=== PATIENT | male | born 1950 | race African-American/Black ===

== ENCOUNTER 2017-11-14 08:20 | Inpatient (IN) | payer MEDICARE, OTHER ==
[2017-11-14] MEDS ORDERED: DUONEB *Not for PRN Use IH ONE ×3 (08:36→11:57)
[2017-11-14] MEDS ORDERED: MAGNESIUM SULFATE 2GM/50ML 2 GM/50 ML BAG IV ONE (09:05)
[2017-11-14] MEDS ORDERED: PROVENTIL IH ONE (09:05)
[2017-11-14] MEDS ORDERED: NORCO 5/325 PO ONE (09:06)
[2017-11-14 09:12] LABS: Basophils # (Auto) 0.1 K/mm3 (0.0-0.1); Basophils % (Auto) 0.6 % (0.0-1.8); Eosinophils # (Auto) 0.2 K/mm3 (0.0-0.4); Eosinophils % (Auto) 2.7 % (0.0-4.3); Hematocrit 45.8 % (35.5-45.6); Hemoglobin 15.5 gm/dl (11.8-15.2); Lymphocytes # (Auto) 1.6 K/mm3 (1.2-5.4); Lymphocytes % (Auto) 18.3 % (13.4-35.0); Mean Corpuscular HGB Conc 34 % (32-34); Mean Corpuscular Hemoglobin 30 pg (28-32); Mean Corpuscular Volume 89 fl (84-94); Monocytes # (Auto) 0.5 K/mm3 (0.0-0.8); Monocytes % (Auto) 5.6 % (0.0-7.3); Platelet Count 210 K/mm3 (140-440); Red Blood Count 5.13 M/mm3 (3.65-5.03); Red Cell Distribution Width 13.7 % (13.2-15.2)
[2017-11-14 09:18] LABS: BUN/Creatinine Ratio 21; Blood Urea Nitrogen 15 mg/dL (9-20); Calcium 8.5 mg/dL (8.4-10.2); Hemolysis Index 5
--- NOTE | 2017-11-14 09:36 | XRay Report ---
AP CHEST: HISTORY: Hypertension AP view of the chest demonstrates a normal mediastinal and cardiac contour with clear lungs and normal bony and soft tissue structures. IMPRESSION: Unremarkable AP chest.
[2017-11-14 10:29] LABS: INR 0.81 (0.87-1.13)
[2017-11-14 10:30] LABS: Creatine Kinase MB 3.6 ng/mL (0.0-4.0); Partial Thromboplastin Time 31.2 Sec. (24.2-36.6)
[2017-11-14 10:31] LABS: Alanine Aminotransferase 21 units/L (7-56); Albumin 4.2 g/dL (3.9-5)
[2017-11-14 10:33] LABS: Bilirubin,Direct < 0.2 mg/dL (0-0.2)
[2017-11-14] MEDS ORDERED: NACL 0.9% 500 ML 500 ML ONE (10:39)
--- NOTE | 2017-11-14 11:52 | Emergency Department Report ---
ED General Adult HPI - General Chief complaint: Dyspnea/Respdistress Stated complaint: KENYA Time Seen by Provider: 11/14/17 08:33 Source: EMS Mode of arrival: Stretcher Limitations: Language Barrier - History of Present Illness Initial comments: The patient is a 67 year old diabetic male with a history of paroxysmal atrial fibrillation on accident. He presents to the emergency department for an exacerbation of COPD. He's been wheezing for the past few days. He states he is on 20 mg of prednisone a day. He does not complain of much cough. He has had some mild intermittent substernal nonradiating now pleuritic chest pain. He tells me he thinks he had a cardiac catheterization within the past 2 years. However this does not appear to be the case. I did find a record from [facility] indicating: Coronary angiography in 04/2012 revealed mild, non- obstructive LAD disease (10-20%). However, I do not find evidence of a subsequent cardiac catheterization. -: Gradual, days(s) Location: chest Radiation: non-radiation Severity scale (0 -10): 8 Consistency: intermittent, now resolved Improves with: none Worsens with: none Associated Symptoms: denies other symptoms, chest pain Treatments Prior to Arrival: none - Related Data Home Medications Medication Instructions Recorded Confirmed Last Taken Digoxin 0.125 mg PO DAILY 07/31/13 02/06/16 02/05/16 Fenofibrate Nanocrystallized 145 mg PO DAILY 07/31/13 02/06/16 02/05/16 [Tricor] Benzonatate [Tessalon Perles] 100 mg PO Q8HR 02/06/16 02/06/16 02/06/16 Budesonide [Pulmicort] 0.5 mg IH Q12HR 02/06/16 02/06/16 02/06/16 Canagliflozin (Nf) [Invokana (Nf)] 100 mg PO DAILY 02/06/16 02/06/16 02/05/16 Losartan [Cozaar] 50 mg PO DAILY 02/06/16 02/06/16 02/05/16 Lovastatin [Altoprev] 40 mg PO DAILY 02/06/16 02/06/16 02/05/16 Montelukast [Singulair] 10 mg PO DAILY 02/06/16 02/06/16 02/05/16 Verapamil HCl [Verapamil ER PM] 100 mg PO DAILY 02/06/16 02/06/16 02/05/16 metFORMIN [Glucophage] 1,000 mg PO BID 02/06/16 02/06/16 02/05/16 predniSONE [Deltasone] 20 mg PO QDAY 02/06/16 02/06/16 02/05/16 Previous Rx's Medication Instructions Recorded Last Taken Type Dabigatran [Pradaxa] 150 mg PO BID #60 capsule 02/08/14 02/05/16 Rx Levofloxacin [Levaquin TAB] 500 mg PO QDAY #5 tablet 02/08/14 02/05/16 Rx Azithromycin [Zithromax Z-MELO] 250 mg PO DAILY #1 pack 02/06/16 Unknown Rx Allergies Allergy/AdvReac Type Severity Reaction Status Date / Time No Known Allergies Allergy Unverified 08/01/13 11:30 ED Review of Systems ROS: Stated complaint: KENYA Other details as noted in HPI Constitutional: denies: chills, fever Eyes: denies: eye pain, eye discharge, vision change ENT: denies: ear pain, throat pain Respiratory: shortness of breath, wheezing. denies: cough Cardiovascular: chest pain. denies: palpitations Endocrine: no symptoms reported Gastrointestinal: denies: abdominal pain, nausea, diarrhea Genitourinary: denies: urgency, dysuria Musculoskeletal: denies: back pain, joint swelling, arthralgia Skin: denies: rash, lesions Neurological: denies: headache, weakness, paresthesias Psychiatric: denies: anxiety, depression Hematological/Lymphatic: denies: easy bleeding, easy bruising ED Past Medical Hx - Past Medical History Hx Hypertension: Yes Hx Heart Attack/AMI: Yes Hx Congestive Heart Failure: No Hx Diabetes: Yes Hx Asthma: Yes Hx COPD: Yes Additional medical history: afib - Surgical History Additional Surgical History: none - Social History Smoking Status: Never Smoker - Medications Home Medications: Home Medications Medication Instructions Recorded Confirmed Last Taken Type Digoxin 0.125 mg PO DAILY 07/31/13 02/06/16 02/05/16 History Fenofibrate Nanocrystallized 145 mg PO DAILY 07/31/13 02/06/16 02/05/16 History [Tricor] Dabigatran [Pradaxa] 150 mg PO BID #60 capsule 02/08/14 02/06/16 02/05/16 Rx Levofloxacin [Levaquin TAB] 500 mg PO QDAY #5 tablet 02/08/14 02/06/16 02/05/16 Rx Azithromycin [Zithromax Z-MELO] 250 mg PO DAILY #1 pack 02/06/16 Unknown Rx Benzonatate [Tessalon Perles] 100 mg PO Q8HR 02/06/16 02/06/16 02/06/16 History Budesonide [Pulmicort] 0.5 mg IH Q12HR 02/06/16 02/06/16 02/06/16 History Canagliflozin (Nf) [Invokana (Nf)] 100 mg PO DAILY 02/06/16 02/06/16 02/05/16 History Losartan [Cozaar] 50 mg PO DAILY 02/06/16 02/06/16 02/05/16 History Lovastatin [Altoprev] 40 mg PO DAILY 02/06/16 02/06/16 02/05/16 History Montelukast [Singulair] 10 mg PO DAILY 02/06/16 02/06/16 02/05/16 History Verapamil HCl [Verapamil ER PM] 100 mg PO DAILY 02/06/16 02/06/16 02/05/16 History metFORMIN [Glucophage] 1,000 mg PO BID 02/06/16 02/06/16 02/05/16 History predniSONE [Deltasone] 20 mg PO QDAY 02/06/16 02/06/16 02/05/16 History ED Physical Exam - General Limitations: Language Barrier General appearance: alert, in no apparent distress - Head Head exam: Present: atraumatic, normocephalic - Eye Eye exam: Present: normal appearance, PERRL, EOMI. Absent: scleral icterus - ENT ENT exam: Present: mucous membranes moist - Neck Neck exam: Present: normal inspection - Respiratory Respiratory exam: Present: wheezes, accessory muscle use. Absent: respiratory distress - Cardiovascular Cardiovascular Exam: Present: regular rate, normal rhythm. Absent: systolic murmur, diastolic murmur, rubs, gallop - GI/Abdominal GI/Abdominal exam: Present: soft, normal bowel sounds. Absent: distended, tenderness, guarding, rebound, rigid - Rectal Rectal exam: Present: deferred - Extremities Exam Extremities exam: Present: normal inspection, tenderness, normal capillary refill. Absent: pedal edema, joint swelling, calf tenderness - Back Exam Back exam: Present: normal inspection - Neurological Exam Neurological exam: Present: alert, oriented X3, CN II-XII intact. Absent: motor sensory deficit - Psychiatric Psychiatric exam: Present: normal affect, normal mood - Skin Skin exam: Present: warm, dry, intact, normal color. Absent: rash ED Course Vital Signs 11/14/17 11/14/17 11/14/17 08:35 08:47 08:50 Temperature 98.6 F Pulse Rate 96 H 96 H Pulse Rate [ Bilateral] Respiratory 24 Rate Respiratory Rate [Bilateral ] Blood Pressure 140/92 O2 Sat by Pulse 98 96 Oximetry 11/14/17 11/14/17 09:15 09:27 Temperature Pulse Rate Pulse Rate [ 97 H 101 H Bilateral] Respiratory Rate Respiratory 18 18 Rate [Bilateral ] Blood Pressure O2 Sat by Pulse Oximetry - Reevaluation(s) Reevaluation #1: The patient's wheezing did improve at least 80%. His pulse oximetry was 95% on room air. He was concerned about his intermittent chest pain. I do not think he's had a repeat cardiac catheterization since 2011 as far as I can tell. He had nonobstructive LAD disease at that point. I spoke with Dr. Rodgers, he will be admitting the patient to telemetry. I will place a consultation to [facility]. He is admitted in stable condition. 11/14/17 11:49 ED Medical Decision Making - Lab Data Result diagrams: 11/14/17 08:54 11/14/17 08:54 Laboratory Results - last 24 hr 11/14/17 11/14/17 11/14/17 08:54 08:54 09:53 WBC 8.9 RBC 5.13 H Hgb 15.5 H Hct 45.8 H MCV 89 MCH 30 MCHC 34 RDW 13.7 Plt Count 210 Lymph % (Auto) 18.3 [place] % (Auto) 5.6 Eos % (Auto) 2.7 Baso % (Auto) 0.6 Lymph # 1.6 [place] # 0.5 Eos # 0.2 Baso # 0.1 Seg Neutrophils % 72.8 H Seg Neutrophils # 6.5 PT INR APTT Sodium 138 Potassium 3.9 Chloride 98.1 Carbon Dioxide 24 Anion Gap 20 BUN 15 Creatinine 0.7 L Estimated GFR > 60 BUN/Creatinine Ratio 21 Glucose 267 H Calcium 8.5 Magnesium 2.50 H Total Bilirubin 0.30 Direct Bilirubin < 0.2 AST 17 ALT 21 Alkaline Phosphatase 52 Total Creatine Kinase CK-MB (CK-2) CK-MB (CK-2) Rel Index Troponin T < 0.010 NT-Pro-B Natriuret Pep 259.4 Total Protein 6.0 L Albumin 4.2 Albumin/Globulin Ratio 2.3 11/14/17 11/14/17 09:53 09:53 WBC RBC Hgb Hct MCV MCH MCHC RDW Plt Count Lymph % (Auto) Florence % (Auto) Eos % (Auto) Baso % (Auto) Lymph # [place] # Eos # Baso # Seg Neutrophils % Seg Neutrophils # PT 11.6 L INR 0.81 L APTT 31.2 Sodium Potassium Chloride Carbon Dioxide Anion Gap BUN Creatinine Estimated GFR BUN/Creatinine Ratio Glucose Calcium Magnesium Total Bilirubin Direct Bilirubin AST ALT Alkaline Phosphatase Total Creatine Kinase 96 CK-MB (CK-2) 3.6 CK-MB (CK-2) Rel Index 3.7 Troponin T NT-Pro-B Natriuret Pep Total Protein Albumin Albumin/Globulin Ratio - EKG Data -: EKG Interpreted by Me EKG shows normal: axis (normal axis) Rate: normal (atrial fibrillation with controlled ventricular response) - EKG Data Interpretation: nonspecific ST-T wave mohinder - Radiology Data interpreted by me: Chest x-ray no acute process Critical care attestation.: If time is entered above; I have spent that time in minutes in the direct care of this critically ill patient, excluding procedure time. ED Disposition Clinical Impression: Acute exacerbation of COPD with asthma, Chronic atrial fibrillation Chest pain Qualifiers: Chest pain type: unspecified Qualified Code(s): R07.9 - Chest pain, unspecified Hyperglycemia due to type 2 diabetes mellitus Qualifiers: Diabetes mellitus intermediate card tender insulin use: without fci use Qualified Code(s ): E11.65 - Type 2 diabetes mellitus with hyperglycemia Disposition: OP ADMIT IP TO THIS HOSP Is pt being admited?: Yes Does the pt Need Aspirin: Yes Condition: Stable Instructions: Asthma (ED), Chest Pain (ED), Diabetes Mellitus Type 2 in Adults (ED) Referrals: PRIMARY CARE, [Primary Care Provider] - 3-5 Days Time of Disposition: 11:54
[2017-11-14] MEDS: ASPIRIN PO SCH (12:30)
[2017-11-14] MEDS ORDERED: D50W (25GM) Syringe IV PRN (13:40)
[2017-11-14] MEDS ORDERED: VERAPAMIL HCL 100 MG PO SCH (13:45)
[2017-11-14] MEDS ORDERED: NON-FORMULARY (Lovastatin [Altoprev] 40 MG) PO SCH (13:45)
--- NOTE | 2017-11-14 13:46 | History and Physical Report ---
History of Present Illness Date of examination: 11/14/17 Date of admission: 11/14/17 Chief complaint: shortness of breath and difficulty in breathing History of present illness: The patient is a 67 year old male with DMT2, Asthma, Afib adn anticoagulation with Pradaxa, presented ti the Ed on account of progressively worsening shortness of breath that started at about 9 pm yesterday 11/13/17. Had multiple breathing treatment at home including one dose of predinisone that did not improve his symptoms. He presents to the emergency department pt was still wheezing with limited air movement. More aerosolized treatment were give, symptoms peristedEKG showed nonspecific ST segment changes. Pt also complained of dull retrosternal chest pain 4/10 in severity. Nonradiatory and had no diaphoresis. Nonreproducible. Had coronary angiography in 04/2012 that revealed mild, non-obstructive LAD disease (10-20%). Pt was therefore admitted for further evaluation and treatment. Past History Past Medical History: COPD, diabetes, hypertension Social history: denies: smoking, alcohol abuse, prescription drug abuse Medications and Allergies Allergies Allergy/AdvReac Type Severity Reaction Status Date / Time No Known Allergies Allergy Unverified 08/01/13 11:30 Home Medications Medication Instructions Recorded Confirmed Last Taken Type Digoxin 0.125 mg PO DAILY 07/31/13 11/14/17 1 Day Ago History ~11/13/17 Fenofibrate Nanocrystallized 145 mg PO DAILY 07/31/13 11/14/17 1 Day Ago History [Tricor] ~11/13/17 Dabigatran [Pradaxa] 150 mg PO BID #60 capsule 02/08/14 11/14/17 1 Day Ago Rx ~11/13/17 Levofloxacin [Levaquin TAB] 500 mg PO QDAY #5 tablet 02/08/14 11/14/17 1 Day Ago Rx ~11/13/17 Azithromycin [Zithromax Z-MELO] 250 mg PO DAILY #1 pack 02/06/16 11/14/17 1 Day Ago Rx ~11/13/17 Benzonatate [Tessalon Perles] 100 mg PO Q8HR 02/06/16 11/14/17 1 Day Ago History ~11/13/17 Budesonide [Pulmicort] 0.5 mg IH Q12HR 02/06/16 11/14/17 1 Day Ago History ~11/13/17 Canagliflozin (Nf) [Invokana (Nf)] 100 mg PO DAILY 02/06/16 11/14/17 1 Day Ago History ~11/13/17 Losartan [Cozaar] 50 mg PO DAILY 02/06/16 11/14/17 1 Day Ago History ~11/13/17 Lovastatin [Altoprev] 40 mg PO DAILY 02/06/16 11/14/17 1 Day Ago History ~11/13/17 Montelukast [Singulair] 10 mg PO DAILY 02/06/16 11/14/17 1 Day Ago History ~11/13/17 Verapamil HCl [Verapamil ER PM] 100 mg PO DAILY 02/06/16 11/14/17 1 Day Ago History ~11/13/17 metFORMIN [Glucophage] 1,000 mg PO BID 02/06/16 11/14/17 1 Day Ago History ~11/13/17 predniSONE [Deltasone] 20 mg PO QDAY 02/06/16 11/14/17 1 Day Ago History ~11/13/17 Active Meds: Active Medications Albuterol/Ipratropium (Duoneb *Not For Prn Use*) 2.5 ampul IH QIDRT [facility] Aspirin (Aspirin) 325 mg PO QDAY [facility] Last Admin: 11/14/17 12:30 Dose: 325 mg Benzonatate (Tessalon Perles) 100 mg PO Q8HR [facility] Budesonide (Pulmicort) 0.5 mg IH Q12HR [facility] Dabigatran (Pradaxa) 150 mg PO BID [facility]; Protocol Dextrose (D50w (25gm) Syringe) 50 ml IV PRN PRN PRN Reason: Hypoglycemia Digoxin (Lanoxin) 0.125 mg PO DAILY [facility] Fenofibrate (Tricor) 145 mg PO DAILY [facility] Azithromycin 500 mg/ Sodium (Chloride) 250 mls @ 250 mls/hr IV Q24HR [facility] Insulin Human Lispro (Humalog) 0 unit SUB-Q ACHS [facility]; Protocol Losartan Potassium (Cozaar) 50 mg PO DAILY [facility] Metformin HCl (Glucophage) 1,000 mg PO BID [facility] Methylprednisolone Sodium Succinate (Solu-Medrol) 40 mg IV QDAY [facility] Methylprednisolone Sodium Succinate (Solu-Medrol) 40 mg IV Q6HR ONE Stop: 11/14/17 13:36 Miscellaneous Medication (Lovastatin [Altoprev]) 40 mg PO DAILY [facility] Miscellaneous Medication (Verapamil Hcl [Verapamil Er Pm]) 100 mg PO DAILY [facility] Montelukast Sodium (Singulair) 10 mg PO QHS [facility] Montelukast Sodium (Singulair) 10 mg PO DAILY [facility] Review of Systems Constitutional: no weight loss, no weight gain Ears, nose, mouth and throat: no ear pain, no ear discharge, no tinnitis, no decreased hearing Cardiovascular: chest pain, orthopnea, no rapid/irregular heart beat, no edema, no syncope Respiratory: shortness of breath, dyspnea on exertion, wheezing Gastrointestinal: no abdominal pain, no nausea, no vomiting, no diarrhea, no constipation Rectal: incontinence, bleeding, no pain Musculoskeletal: neck stiffness, neck pain Integumentary: no rash, no pruritis, no redness, no sores, no wounds Neurological: no head injury, no transient paralysis, no paralysis, no weakness Psychiatric: no memory loss, no change in sleep habits, no sleep disturbances Endocrine: no cold intolerance, no heat intolerance, no polyphagia, no excessive thirst Hematologic/Lymphatic: no easy bruising, no easy bleeding Allergic/Immunologic: wheezing, no urticaria, no allergic rhinitis Exam - Constitutional Vitals: Temp Pulse Resp BP Pulse Ox 98.6 F 103 H 16 125/58 96 11/14/17 08:35 11/14/17 12:51 11/14/17 12:44 11/14/17 12:44 11/14/17 12:44 General appearance: Present: no acute distress, well-nourished - EENT Eyes: Present: PERRL, EOM intact - Neck Neck: Present: supple - Respiratory Respiratory effort: normal Respiratory: bilateral: diminished, wheezing - Cardiovascular Rhythm: irregularly irregular Heart Sounds: Present: systolic murmur. Absent: rub, click - Extremities Extremities: pulses symmetrical, No edema Peripheral Pulses: within normal limits - Abdominal General gastrointestinal: Present: soft, non-tender, non-distended, distended, normal bowel sounds - Integumentary Integumentary: Present: clear, warm, dry - Musculoskeletal Musculoskeletal: gait normal, strength equal bilaterally - Psychiatric Psychiatric: appropriate mood/affect, intact judgment & insight - Neurologic Neurologic: CNII-XII intact, moves all extremities Results - Labs CBC & Chem 7: 11/15/17 04:42 04/02/18 04:42 Labs: Abnormal lab results 11/14/17 11/14/17 11/14/17 Range/Units 08:54 08:54 09:53 RBC 5.13 H (3.65-5.03) M/mm3 Hgb 15.5 H (11.8-15.2) gm/dl Hct 45.8 H (35.5-45.6) % Seg Neutrophils % 72.8 H (40.0-70.0) % PT (12.2-14.9) Sec. INR (0.87-1.13) Creatinine 0.7 L (0.8-1.5) mg/dL Glucose 267 H (75-100) mg/dL Magnesium 2.50 H (1.7-2.3) mg/dL Total Protein 6.0 L (6.3-8.2) g/dL 11/14/17 Range/Units 09:53 RBC (3.65-5.03) M/mm3 Hgb (11.8-15.2) gm/dl Hct (35.5-45.6) % Seg Neutrophils % (40.0-70.0) % PT 11.6 L (12.2-14.9) Sec. INR 0.81 L (0.87-1.13) Creatinine (0.8-1.5) mg/dL Glucose (75-100) mg/dL Magnesium (1.7-2.3) mg/dL Total Protein (6.3-8.2) g/dL Assessment and Plan COPD exercebation Hypoxia Chest pain - likely 2/2 cardioac strain AF DMT2 Admit Bronchodilator Osygen supplement IV Solu medrol ASA, BB Azithromycin Continue with Pradaxa ASA, NTG, cardiology consult SSI, consisetnt CHO diet DVT PPx with heparin
[2017-11-14] MEDS ORDERED: SINGULAIR PO SCH ×2 (14:00→22:00)
[2017-11-14] MEDS ORDERED: LANOXIN PO SCH (14:00)
[2017-11-14] MEDS: TESSALON PERLES PO SCH ×2 (14:06→22:28)
[2017-11-14] MEDS ORDERED: ZITHROMAX 500 MG in NACL 0.9% 250ML 250 ML IV SCH (15:00)
[2017-11-14] MEDS: PULMICORT IH SCH ×2 (15:18→21:00)
[2017-11-14] MEDS: DUONEB *Not for PRN Use IH SCH ×2 (15:18→21:00)
[2017-11-14 15:51] LABS: ABG Base Excess -5.4 mmol/L (-2.0-3.0); ABG HCO3 18.4 mmol/L (20.0-26.0); ABG Methemoglobin 0.6 % (0.0-1.5); ABG Oxygen Saturation 95.9 % (95.0-99.0); ABG PCO2 31.3 mm Hg; ABG PH 7.385 pH Units (7.350-7.450); ABG PO2 79.5 mm Hg (80.0-90.0)
[2017-11-14] MEDS: TRICOR PO SCH (18:15)
[2017-11-14] MEDS: COZAAR PO SCH (18:15)
[2017-11-14] MEDS: PRADAXA PO SCH ×2 (18:15→22:28)
[2017-11-14] MEDS: HumaLOG SUB-Q SCH ×2 (18:19→22:26)
[2017-11-14] MEDS: GLUCOPHAGE PO SCH (18:32)
[2017-11-14] MEDS: CALAN SR PO SCH (18:32)
[2017-11-14] MEDS: LANOXIN PO SCH (20:52)
[2017-11-14] MEDS: PRAVACHOL PO SCH (22:29)
[2017-11-15] MEDS ORDERED: PROVENTIL IH PRN (00:56)
[2017-11-15] MEDS: TESSALON PERLES PO SCH ×3 (06:00→21:45)
[2017-11-15 06:27] LABS: Basophils % (Auto) 0.1 % (0.0-1.8); Eosinophils % (Auto) 0.1 % (0.0-4.3); Hematocrit 43.1 % (35.5-45.6); Hemoglobin 14.6 gm/dl (11.8-15.2); Lymphocytes # (Auto) 0.9 K/mm3 (1.2-5.4); Lymphocytes % (Auto) 9.1 % (13.4-35.0); Mean Corpuscular HGB Conc 34 % (32-34); Mean Corpuscular Hemoglobin 30 pg (28-32); Mean Corpuscular Volume 90 fl (84-94); Monocytes # (Auto) 0.4 K/mm3 (0.0-0.8); Platelet Count 224 K/mm3 (140-440); Red Cell Distribution Width 13.6 % (13.2-15.2)
[2017-11-15 06:59] LABS: Alanine Aminotransferase 21 units/L (7-56); Albumin 3.9 g/dL (3.9-5); BUN/Creatinine Ratio 26; Blood Urea Nitrogen 18 mg/dL (9-20); Calcium 8.1 mg/dL (8.4-10.2); Hemolysis Index 75
[2017-11-15] MEDS: DUONEB *Not for PRN Use IH SCH ×3 (08:01→19:43)
[2017-11-15] MEDS: PULMICORT IH SCH ×4 (08:01→22:48)
[2017-11-15] MEDS: HumaLOG SUB-Q SCH ×4 (08:55→21:54)
[2017-11-15] MEDS: TRICOR PO SCH (09:00)
[2017-11-15] MEDS: GLUCOPHAGE PO SCH ×2 (09:00→17:09)
[2017-11-15] MEDS: COZAAR PO SCH (09:00)
[2017-11-15] MEDS ORDERED: NACL 0.9% 1000 ML 1,000 ML IV SCH (09:00)
[2017-11-15] MEDS: PRADAXA PO SCH ×2 (09:00→21:45)
[2017-11-15] MEDS ORDERED: NACL 0.9% 1000 ML 1,000 ML IV ONE (09:00)
[2017-11-15] MEDS: SINGULAIR PO SCH (09:01)
[2017-11-15] MEDS: ASPIRIN PO SCH (09:01)
--- NOTE | 2017-11-15 09:22 | Progress Note ---
Assessment and Plan COPD exercebation Hypoxia Chest pain - likely 2/2 cardiac strain chronic AF DMT2 Plan Bronchodilator Oxygen supplement IV Solu medrol ASA, Holding Beta duke b/c sever COPD exercebation with asthma Azithromycin Continue with Pradaxa ASA, NTG, cardiology consult SSI, consisetnt CHO diet DVT PPx with heparin Subjective Date of service: 11/15/17 Principal diagnosis: COPD exercebation Interval history: Still having shortness of breath with wheezing though better. No fever. Objective - Constitutional Vitals: Vital Signs - 12hr 11/14/17 11/15/17 11/15/17 22:02 01:07 01:08 Temperature 97.8 F Pulse Rate 103 H Pulse Rate [ 105 H Bilateral] Respiratory 20 Rate Respiratory 18 Rate [Bilateral ] Blood Pressure 137/77 [Right] O2 Sat by Pulse 98 95 Oximetry 11/15/17 11/15/17 11/15/17 01:16 04:05 07:42 Temperature 98.1 F Pulse Rate 90 Pulse Rate [ 85 Bilateral] Respiratory 20 16 Rate Respiratory 18 Rate [Bilateral ] Blood Pressure 132/83 [Right] O2 Sat by Pulse 97 Oximetry 11/15/17 11/15/17 11/15/17 08:00 08:05 08:22 Temperature Pulse Rate Pulse Rate [ 112 H 101 H Bilateral] Respiratory Rate Respiratory 18 18 Rate [Bilateral ] Blood Pressure [Right] O2 Sat by Pulse 97 Oximetry General appearance: Present: no acute distress, well-nourished - EENT Eyes: PERRL, EOM intact - Neck Neck: supple, normal ROM - Respiratory Respiratory effort: normal Respiratory: bilateral: CTA - Cardiovascular Rhythm: regular Heart Sounds: Present: S1 & S2. Absent: gallop, rub Extremities: pulses intact, No edema, normal color, Full ROM - Gastrointestinal General gastrointestinal: Present: soft, non-tender, non-distended, normal bowel sounds - Integumentary Integumentary: clear, warm, dry - Musculoskeletal Musculoskeletal: 1, strength equal bilaterally - Neurologic Neurologic: moves all extremities - Psychiatric Psychiatric: memory intact, appropriate mood/affect, intact judgment & insight - Labs CBC & Chem 7: 11/16/17 04:30 11/16/17 04:30 Labs: Abnormal lab results 11/14/17 11/14/17 11/14/17 Range/Units 08:54 09:53 09:53 Lymph % (Auto) (13.4-35.0) % Lymph # (1.2-5.4) K/mm3 Seg Neutrophils % (40.0-70.0) % Seg Neutrophils # (1.8-7.7) K/mm3 PT 11.6 L (12.2-14.9) Sec. INR 0.81 L (0.87-1.13) ABG pO2 (80.0-90.0) mm Hg ABG HCO3 (20.0-26.0) mmol/L ABG Base Excess (-2.0-3.0) mmol/L Oxyhemoglobin (95.0-99.0) % Sodium (137-145) mmol/L Chloride (98-107) mmol/L Carbon Dioxide (22-30) mmol/L Creatinine 0.7 L (0.8-1.5) mg/dL Glucose 267 H (75-100) mg/dL POC Glucose (70-105) Calcium (8.4-10.2) mg/dL Magnesium 2.50 H (1.7-2.3) mg/dL Total Protein 6.0 L (6.3-8.2) g/dL 11/14/17 11/14/17 11/14/17 Range/Units 15:35 18:22 19:44 Lymph % (Auto) (13.4-35.0) % Lymph # (1.2-5.4) K/mm3 Seg Neutrophils % (40.0-70.0) % Seg Neutrophils # (1.8-7.7) K/mm3 PT (12.2-14.9) Sec. INR (0.87-1.13) ABG pO2 79.5 L (80.0-90.0) mm Hg ABG HCO3 18.4 L (20.0-26.0) mmol/L ABG Base Excess -5.4 L (-2.0-3.0) mmol/L Oxyhemoglobin 94.2 L (95.0-99.0) % Sodium (137-145) mmol/L Chloride (98-107) mmol/L Carbon Dioxide (22-30) mmol/L Creatinine (0.8-1.5) mg/dL Glucose (75-100) mg/dL POC Glucose 308 H 352 H (70-105) Calcium (8.4-10.2) mg/dL Magnesium (1.7-2.3) mg/dL Total Protein (6.3-8.2) g/dL 11/14/17 11/15/17 11/15/17 Range/Units 22:03 04:20 04:42 Lymph % (Auto) 9.1 L (13.4-35.0) % Lymph # 0.9 L (1.2-5.4) K/mm3 Seg Neutrophils % 86.7 H (40.0-70.0) % Seg Neutrophils # 9.0 H (1.8-7.7) K/mm3 PT (12.2-14.9) Sec. INR (0.87-1.13) ABG pO2 (80.0-90.0) mm Hg ABG HCO3 (20.0-26.0) mmol/L ABG Base Excess (-2.0-3.0) mmol/L Oxyhemoglobin (95.0-99.0) % Sodium (137-145) mmol/L Chloride (98-107) mmol/L Carbon Dioxide (22-30) mmol/L Creatinine (0.8-1.5) mg/dL Glucose (75-100) mg/dL POC Glucose 302 H 238 H (70-105) Calcium (8.4-10.2) mg/dL Magnesium (1.7-2.3) mg/dL Total Protein (6.3-8.2) g/dL 11/15/17 Range/Units 04:42 Lymph % (Auto) (13.4-35.0) % Lymph # (1.2-5.4) K/mm3 Seg Neutrophils % (40.0-70.0) % Seg Neutrophils # (1.8-7.7) K/mm3 PT (12.2-14.9) Sec. INR (0.87-1.13) ABG pO2 (80.0-90.0) mm Hg ABG HCO3 (20.0-26.0) mmol/L ABG Base Excess (-2.0-3.0) mmol/L Oxyhemoglobin (95.0-99.0) % Sodium 136 L (137-145) mmol/L Chloride 96.1 L (98-107) mmol/L Carbon Dioxide 19 L (22-30) mmol/L Creatinine 0.7 L (0.8-1.5) mg/dL Glucose 322 H (75-100) mg/dL POC Glucose (70-105) Calcium 8.1 L (8.4-10.2) mg/dL Magnesium (1.7-2.3) mg/dL Total Protein 6.0 L (6.3-8.2) g/dL
[2017-11-15] MEDS: LANTUS SUB-Q SCH ×2 (10:49→21:54)
[2017-11-15] MEDS: CALAN SR PO SCH (10:50)
--- NOTE | 2017-11-15 11:38 | Consultation ---
History of Present Illness Consult date: 11/15/17 Requesting physician: HEIDI KEE Consult reason: chest pain History of present illness: The pt is a 67 YO male with a past medical history significant for paroxysmal atrial fibrillation, anticoagulated with Pradaxa, asthma, HTN, HLP, DM. He is followed in our office by Dr. Bradshaw. PCP is Dr. Rodgers. He presented with complaints of shortness of breath since yesterday evening around 5PM. He states that he has seasonal allergies and is concerned that the pollen is causing his SOB. He also c/o a bout of chest pain 3 days ago. He describes the pain as a nonexertional, nonradiating, substernal pressure which lasted for approx 1 hour. On evaluation, he denies any chest pain. He denies any cough, fever, chills, palpitations, n/v, diaphoresis, dizziness or syncope. CXR with NAF; Pro- BNP WNL; troponin negative for AMI x 1. LHC done 04/2012 showed essentially normal coronary anatomy except for very mild disease of the prox LAD and ostium of the circ, normal LVEF. Echo done 09/2014 showed EF 55-60%, mild AR. Past History Past Medical History: COPD, diabetes, hypertension, hyperlipidemia, other ( asthma) Social history: smoking (former). denies: alcohol abuse, prescription drug abuse Medications and Allergies Allergies Allergy/AdvReac Type Severity Reaction Status Date / Time No Known Allergies Allergy Unverified 08/01/13 11:30 Home Medications Medication Instructions Recorded Confirmed Last Taken Type Digoxin 0.125 mg PO DAILY 07/31/13 11/14/17 1 Day Ago History ~11/13/17 Fenofibrate Nanocrystallized 145 mg PO DAILY 07/31/13 11/14/17 1 Day Ago History [Tricor] ~11/13/17 Dabigatran [Pradaxa] 150 mg PO BID #60 capsule 02/08/14 11/14/17 1 Day Ago Rx ~11/13/17 Levofloxacin [Levaquin TAB] 500 mg PO QDAY #5 tablet 02/08/14 11/14/17 1 Day Ago Rx ~11/13/17 Azithromycin [Zithromax Z-MELO] 250 mg PO DAILY #1 pack 02/06/16 11/14/17 1 Day Ago Rx ~11/13/17 Benzonatate [Tessalon Perles] 100 mg PO Q8HR 02/06/16 11/14/17 1 Day Ago History ~11/13/17 Budesonide [Pulmicort] 0.5 mg IH Q12HR 02/06/16 11/14/17 1 Day Ago History ~11/13/17 Canagliflozin (Nf) [Invokana (Nf)] 100 mg PO DAILY 02/06/16 11/14/17 1 Day Ago History ~11/13/17 Losartan [Cozaar] 50 mg PO DAILY 02/06/16 11/14/17 1 Day Ago History ~11/13/17 Lovastatin [Altoprev] 40 mg PO DAILY 02/06/16 11/14/17 1 Day Ago History ~11/13/17 Montelukast [Singulair] 10 mg PO DAILY 02/06/16 11/14/17 1 Day Ago History ~11/13/17 Verapamil HCl [Verapamil ER PM] 100 mg PO DAILY 02/06/16 11/14/17 1 Day Ago History ~11/13/17 metFORMIN [Glucophage] 1,000 mg PO BID 02/06/16 11/14/17 1 Day Ago History ~11/13/17 predniSONE [Deltasone] 20 mg PO QDAY 02/06/16 11/14/17 1 Day Ago History ~11/13/17 Active Meds: Active Medications Albuterol (Proventil) 2.5 mg IH Q4HRT PRN PRN Reason: Shortness Of Breath Last Admin: 11/15/17 01:04 Dose: 2.5 mg Albuterol/Ipratropium (Duoneb *Not For Prn Use*) 1 ampul IH TIDRT [facility] Aspirin (Aspirin) 325 mg PO QDAY [facility] Last Admin: 11/15/17 09:01 Dose: 325 mg Benzonatate (Tessalon Perles) 100 mg PO Q8HR [facility] Last Admin: 11/15/17 06:00 Dose: 100 mg Budesonide (Pulmicort) 0.5 mg IH Q12HR [facility] Last Admin: 11/15/17 10:41 Dose: Not Given Dabigatran (Pradaxa) 150 mg PO BID [facility]; Protocol Last Admin: 11/15/17 09:00 Dose: 150 mg Dextrose (D50w (25gm) Syringe) 50 ml IV PRN PRN PRN Reason: Hypoglycemia Digoxin (Lanoxin) 0.125 mg PO DAILY@1700 [facility] Last Admin: 11/14/17 20:52 Dose: 0.125 mg Fenofibrate (Tricor) 145 mg PO DAILY [facility] Last Admin: 11/15/17 09:00 Dose: 145 mg Azithromycin 500 mg/ Sodium (Chloride) 250 mls @ 250 mls/hr IV Q24H [facility] Last Infusion: 11/14/17 16:35 Dose: Infused Sodium Chloride (Nacl 0.9% 1000 Ml) 1,000 mls @ 150 mls/hr IV DIRECT [facility] Insulin Glargine (Lantus) 25 units SUB-Q BID [facility] Last Admin: 11/15/17 10:49 Dose: 25 units Insulin Human Lispro (Humalog) 0 unit SUB-Q ACHS [facility]; Protocol Last Admin: 11/15/17 08:55 Dose: 3 unit Losartan Potassium (Cozaar) 50 mg PO DAILY [facility] Last Admin: 11/15/17 09:00 Dose: 50 mg Metformin HCl (Glucophage) 1,000 mg PO BIDDIAB [facility] Last Admin: 11/15/17 09:00 Dose: 1,000 mg Methylprednisolone Sodium Succinate (Solu-Medrol) 40 mg IV Q6H [facility] Last Admin: 11/15/17 08:40 Dose: 40 mg Montelukast Sodium (Singulair) 10 mg PO QDAY [facility] Last Admin: 11/15/17 09:01 Dose: 10 mg Pravastatin Sodium (Pravachol) 40 mg PO QHS [facility] Last Admin: 11/14/17 22:29 Dose: 40 mg Verapamil HCl (Calan Sr) 120 mg PO DAILY [facility] Last Admin: 11/15/17 10:50 Dose: 120 mg Review of Systems Constitutional: no weight loss, no weight gain, no fever, no chills, no sweats Ears, nose, mouth and throat: no ear pain, no nose pain, no sinus pressure, no sinus pain Cardiovascular: chest pain, shortness of breath, dyspnea on exertion, no orthopnea, no palpitations, no rapid/irregular heart beat, no edema, no syncope , no lightheadedness, no leg edema Respiratory: shortness of breath, dyspnea on exertion, no cough, no congestion, no wheezing, no pain on inspiration Gastrointestinal: no abdominal pain, no nausea, no vomiting, no diarrhea, no constipation, no change in bowel habits Genitourinary Male: no dysuria, no hematuria, no flank pain, no discharge, no urinary frequency, no urinary hesitancy Musculoskeletal: no neck stiffness, no neck pain, no shooting arm pain, no arm numbness/tingling, no low back pain, no shooting leg pain, no leg numbness/ tingling, no redness of joints Integumentary: no rash, no pruritis, no redness, no sores, no wounds Neurological: no head injury, no paralysis, no weakness, no parathesias, no numbness, no tingling, no seizures, no syncope Psychiatric: no anxiety Endocrine: no cold intolerance, no heat intolerance Hematologic/Lymphatic: no easy bruising, no easy bleeding, no lymphadenopathy Allergic/Immunologic: no urticaria, no wheezing, no persistent infections Physical Examination Vital Signs Temp Pulse BP Pulse Ox 98.6 F 96 H 140/92 98 11/14/17 08:35 11/14/17 08:35 11/14/17 08:35 11/14/17 08:35 General appearance: no acute distress HEENT: Positive: PERRL, Normocephaly, Mucus Membranes Moist Neck: Positive: neck supple, trachea midline Cardiac: Positive: Reg Rate and Rhythm, S1/S2 Lungs: Positive: clear to auscultation Neuro: Positive: Grossly Intact, Cranial Nerve 2-12 Intact Abdomen: Positive: Soft. Negative: Tender Skin: Positive: Clear. Negative: Rash, Wound Musculoskeletal: No Fluid Collection, No Pain, Normal Range of Motion Extremities: Absent: edema Results 11/15/17 04:42 11/15/17 04:42 Cardiac Enzymes 11/15/17 Range/Units 04:42 AST 19 (5-40) units/L CBC 11/15/17 Range/Units 04:42 WBC 10.4 (4.5-11.0) K/mm3 RBC 4.80 (3.65-5.03) M/mm3 Hgb 14.6 (11.8-15.2) gm/dl Hct 43.1 (35.5-45.6) % Plt Count 224 (140-440) K/mm3 Lymph # 0.9 L (1.2-5.4) K/mm3 [place] # 0.4 (0.0-0.8) K/mm3 Eos # 0.0 (0.0-0.4) K/mm3 Baso # 0.0 (0.0-0.1) K/mm3 Comprehensive Metabolic Panel 11/15/17 Range/Units 04:42 Sodium 136 L (137-145) mmol/L Potassium 4.4 (3.6-5.0) mmol/L Chloride 96.1 L (98-107) mmol/L Carbon Dioxide 19 L (22-30) mmol/L BUN 18 (9-20) mg/dL Creatinine 0.7 L (0.8-1.5) mg/dL Glucose 322 H (75-100) mg/dL Calcium 8.1 L (8.4-10.2) mg/dL AST 19 (5-40) units/L ALT 21 (7-56) units/L Alkaline Phosphatase 43 (35-129) units/L Total Protein 6.0 L (6.3-8.2) g/dL Albumin 3.9 (3.9-5) g/dL - Imaging and Cardiology Echo: report reviewed (09/2014 showed EF 55-60%, mild AR. ) EKG: report reviewed, image reviewed EKG interpretations - Telemetry EKG Rhythm: Atrial Fibrillation - EKG Supraventricular dysrhythmia: atrial fibrillation Assessment and Plan Assessment: Asthma exacerbation Chest pain, atypical - current resolved; ECG with NAF; trop negative for AMI; ACS ruled out Paroxysmal atrial fibrillation with CVR - antigoagulated with Pradaxa HTN HLP DM Plan: Currently stable cardiac status. No plans for repeat ischemic eval or echo at this time. Can consider as OP with primary design studio consultant. Cont home cardiac regimen. Pt may discharge home from cardiology standpoint. Follow up in our [place] office with Dr. Bradshaw on 12/29/2017 @ 3:45PM. Assessment and plan reviewed with pt at bedside. The patient has been seen in conjunction with Dr. Tejada who agrees with the assessment and plan of care.
[2017-11-15] MEDS: ZITHROMAX PO SCH (12:44)
[2017-11-15] MEDS: LANOXIN PO SCH (17:09)
[2017-11-15] MEDS: PRAVACHOL PO SCH (21:45)
[2017-11-16 05:30] LABS: Basophils % (Auto) 0.1 % (0.0-1.8); Eosinophils % (Auto) 0.1 % (0.0-4.3); Hematocrit 45.9 % (35.5-45.6); Hemoglobin 14.9 gm/dl (11.8-15.2); Lymphocytes # (Auto) 1.2 K/mm3 (1.2-5.4); Lymphocytes % (Auto) 8.7 % (13.4-35.0); Mean Corpuscular HGB Conc 32 % (32-34); Mean Corpuscular Hemoglobin 30 pg (28-32); Mean Corpuscular Volume 92 fl (84-94); Monocytes # (Auto) 0.6 K/mm3 (0.0-0.8); Monocytes % (Auto) 4.2 % (0.0-7.3); Platelet Count 247 K/mm3 (140-440); Red Cell Distribution Width 13.7 % (13.2-15.2)
[2017-11-16] MEDS: TESSALON PERLES PO SCH (05:35)
[2017-11-16 06:09] LABS: Alanine Aminotransferase 28 units/L (7-56); Albumin 4.1 g/dL (3.9-5); BUN/Creatinine Ratio 29; Blood Urea Nitrogen 20 mg/dL (9-20); Calcium 8.8 mg/dL (8.4-10.2); Hemolysis Index 53
[2017-11-16] MEDS: GLUCOPHAGE PO SCH (08:03)
[2017-11-16] MEDS: HumaLOG SUB-Q SCH ×2 (08:03→11:32)
--- NOTE | 2017-11-16 08:28 | Discharge Summary ---
Providers - Providers Date of Admission: 11/14/17 11:55 Date of discharge: 11/16/17 Attending physician: ROLLY KAUR 11/14/17 11:56 Consult to Physician [CONS] Urgent Comment: added to list Consulting Provider: PAZ FRANCO Physician Instructions: Reason For Exam: chest pain previous 2011 10-20 lad Primary care physician: IT CONSULTANT Hospitalization Reason for admission: Acute respiratory failure, COPD exercebation Condition: Stable Pertinent studies: cxr Procedures: none Hospital course: he patient is a 67 year old male with DMT2, Asthma, Afib adn anticoagulation with Pradaxa, presented ti the Ed on account of progressively worsening shortness of breath that started at about 9 pm yesterday 11/13/17. Had multiple breathing treatment at home including one dose of predinisone that did not improve his symptoms. He presents to the emergency department pt was still wheezing with limited air movement. More aerosolized treatment were give, symptoms peristedEKG showed nonspecific ST segment changes. Pt also complained of dull retrosternal chest pain 4/10 in severity. Nonradiatory and had no diaphoresis. Nonreproducible. Had coronary angiography in 04/2012 that revealed mild, non-obstructive LAD disease (10-20%). Pt was therefore admitted for further evaluation and treatment. Disposition: - TO HOME OR SELFCARE Time spent for discharge: 33 min Core Measure Documentation - Palliative Care Palliative Care/ Comfort Measures: Not Applicable - Core Measures Any of the following diagnoses?: none Exam - Constitutional Vitals: Temp Pulse Resp BP Pulse Ox 97.5 F L 90 20 157/106 93 11/16/17 04:15 11/16/17 04:15 11/16/17 04:15 11/16/17 04:15 11/16/17 04:15 General appearance: Present: no acute distress, well-nourished - EENT Eyes: Present: PERRL - Neck Neck: Present: supple, normal ROM - Respiratory Respiratory effort: normal Respiratory: bilateral: diminished - Cardiovascular Heart Sounds: Present: S1 & S2. Absent: rub, click - Extremities Extremities: pulses symmetrical, No edema Peripheral Pulses: within normal limits - Abdominal General gastrointestinal: Present: soft, non-tender, non-distended, normal bowel sounds - Integumentary Integumentary: Present: clear, warm, dry - Musculoskeletal Musculoskeletal: gait normal, strength equal bilaterally - Psychiatric Psychiatric: appropriate mood/affect, intact judgment & insight - Neurologic Neurologic: CNII-XII intact, moves all extremities Plan Activity: fall precautions Weight Bearing Status: Non-Weight Bearing Diet: diabetic Follow up with: MARGUERITE MONTOYA MD [Staff Physician] - 7 Days ([place] office with Dr. Montoya on 12/29/2017 @ 3:45PM ) PRIMARY CARE, [Primary Care Provider] - 3-5 Days Prescriptions: Azithromycin [Zithromax Z-MELO] 250 mg PO DAILY #1 pack Benzonatate [Tessalon Perles] 100 mg PO Q8HR #30 capsule Budesonide [Pulmicort Respules] 0.5 mg IH Q12HR #1 nebu Canagliflozin (Nf) [Invokana (Nf)] 100 mg PO DAILY #30 tablet Dabigatran [Pradaxa] 150 mg PO BID #30 capsule Digoxin 0.125 mg PO DAILY #30 tablet Fenofibrate [Tricor] 145 mg PO DAILY #30 tablet Insulin Aspart [NovoLOG Flexpen] 2 units SQ AC #1 pen Insulin Glargine [Lantus VIAL] 25 units SUB-Q QHS #300 units Losartan [Cozaar] 50 mg PO DAILY #30 tablet metFORMIN [Glucophage] 1,000 mg PO BIDDIAB #60 tablet predniSONE [Deltasone] 20 mg PO BID #30 tablet Verapamil HCl [Verapamil ER PM] 100 mg PO DAILY #30 cap24h.pct
[2017-11-16] MEDS: DUONEB *Not for PRN Use IH SCH (08:53)
[2017-11-16] MEDS: PULMICORT IH SCH (09:05)
[2017-11-16] MEDS: ASPIRIN PO SCH ×2 (10:00→10:20)
[2017-11-16] MEDS: SINGULAIR PO SCH (10:20)
[2017-11-16] MEDS: ZITHROMAX PO SCH (10:20)
[2017-11-16] MEDS: COZAAR PO SCH (10:20)
[2017-11-16] MEDS: TRICOR PO SCH (10:20)
[2017-11-16] MEDS: PRADAXA PO SCH (10:21)
[2017-11-16] MEDS: CALAN SR PO SCH (10:21)
[2017-11-16] MEDS: LANTUS SUB-Q SCH (10:22)
[2017-11-16 10:24] VITALS: BP 175/83
== END 2017-11-16 12:35 | disposition home or self-care (01) | DRG 189 ==
LOC: ED 08:20 → 4A 11:55
PROVIDERS: ADMIT Family Medicine; ATTEND Family Medicine
PROC: 4A033R1 Measurement of Arterial Saturation, Peripheral, Percutaneous Approach (ICD-10-PCS; principal; 2017-11-14)
DX: J96.01 Acute respiratory failure with hypoxia (principal); J44.1 Chronic obstructive pulmonary disease with (acute) exacerbation; J45.901 Unspecified asthma with (acute) exacerbation; E11.65 Type 2 diabetes mellitus with hyperglycemia; R07.9 Chest pain, unspecified; I48.0 Paroxysmal atrial fibrillation; I25.2 Old myocardial infarction; Z79.84 Long term (current) use of oral hypoglycemic drugs; I10 Essential (primary) hypertension; E78.5 Hyperlipidemia, unspecified; Z87.891 Personal history of nicotine dependence
CPT/HCPCS: 36415; 36600; 71045; 80048; 80053; 80074; 82550; 82553; 82803; 82962; 83735; 83880; 84484; 85025; 85610; 85730; 93005; 93010; 94640; 94760; A9270-GY; J0456; J1815; J2920; J2930; J3475; J7030; J7040; J7050